=== PATIENT | female | born 1985 | race African-American/Black ===

== ENCOUNTER 2017-12-29 12:07 | Emergency (ER) | payer SELFPAY ==
[2017-12-29 15:48] LABS: ABS Basophils 0 10^3/ul (0-0.2); ABS Eosinophils 0.1 10^3/ul (0-0.6); ABS Lymphocytes 2.6 10^3/ul (1.0-4.8); ABS Monocytes 0.5 10^3/ul (0-0.8); ABS Neutrophils 1.9 10^3/ul (1.5-7.7); ABS Nucleated RBC 0 10^3/ul; Eosinophil % 2.3 % (0-6); Hematocrit 39 % (35-47); Hemoglobin 13.1 g/dl (12.0-16.0); Lymphocyte % 50.1 % (25-47); Mean Corpuscular HGB Conc 34 g/dl (31-36); Mean Corpuscular Hemoglobin 31 pg (27-31); Mean Corpuscular Volume 92 fL (80-97); Mean Platelet Volume 7.6 um3 (7.4-10.4); Nucleated Red Blood Cells % 0; Platelet Count 325 10^3/ul (150-450); Red Blood Count 4.22 10^6/ul (4.0-5.4); Red Cell Distribution Width 13 % (10.5-15); White Blood Count 5.1 10^3/ul (3.5-10.8)
[2017-12-29 16:00] LABS: EGFR Non-African American 89.6 (>60)
[2017-12-29] MEDS ORDERED: Iohexol 300* (CONTRAST) 10 ML SDV IV ONE (16:11)
[2017-12-29] MEDS ORDERED: Ondansetron INJ* 2 MG/ML VIAL IV ONE (17:36)
[2017-12-29] MEDS ORDERED: Morphine INJ* 4 MG/ML 1 ML SYRINGE (NEW SYRINGE VERSION) IV ONE (17:36)
[2017-12-29] MEDS ORDERED: Morphine VIAL* 4 MG/ML VIAL (1 ml vial) IV ONE ×2 (17:40→17:45)
--- NOTE | 2017-12-29 17:58 | ED ---
Complex/Multi-Sys Presentation - HPI Summary HPI Summary: Pt here w/ Rt sided ST x 4 days. This is now progressing into her ear. Dysphagia but is still eating and drinking w/o difficulty breathing or swallowing. Has had chills - no fever. Denies rhinorrhea, sneezing, coughing, PND, neck or throat injury. H/o mono as a teen - not sure if this feels the same. Rapid strep was negative. She also admits to a few "bad teeth" on this side of her mouth - didn't notice pain here first but is tender to touch around the area. No drainage into mouth. Tried some OTC "cold/flu" pain reliever w/o relief. Pain here is 5-6/10. She also c/o of RLQ pain that started yesterday and is worse today. Pain is 8/ 10. She had an episode of nausea w/ vomiting since. States it could be an ovarian cyst as she's had this in the past but also admits she still has her appendix. Denies diarrhea - has not moved her bowels in 2 days but this is normal for her. Denies flank pain, urinary sx, vaginal d/c or irritation. Periods have been normal and LMP was about 2 weeks ago. - History Of Current Complaint Chief Complaint: EDGeneral Time Seen by Provider: 12/29/17 13:19 Hx Obtained From: Patient - Allergies/Home Medications Allergies/Adverse Reactions: Allergies Allergy/AdvReac Type Severity Reaction Status Date / Time No Known Allergies Allergy Verified 03/19/16 21:39 Home Medications: Home Medications NK [No Home Medications Reported] 12/29/17 [History Confirmed 12/29/17] PMH/Surg Hx/FS Hx/Imm Hx Previously Healthy: Yes Endocrine/Hematology History: Reports: Hx Anemia - HISTORY Denies: Hx Diabetes Cardiovascular History: Denies: Hx Congestive Heart Failure, Hx Hypertension, Hx Pacemaker/ICD Respiratory History: Reports: Hx Chronic Bronchitis, Hx Sleep Apnea - undiagnosed, Other Respiratory Problems/Disorders - OCCASIONAL SOB WITH EXERTION Denies: Hx Asthma GI History: Denies: Hx Cirrhosis, Hx Crohn's Disease, Hx Diverticulosis, Hx Gall Bladder Disease, Hx Gastroesophageal Reflux Disease, Hx Gastrointestinal Bleed, Hx Hiatal Hernia, Hx Irritable Bowel, Hx Ulcer History: Reports: Other Problems/Disorders - G3 Denies: Hx Kidney Infection, Hx Kidney Stones, Hx Renal Disease Musculoskeletal History: Reports: Hx Back Problems, Hx Bursitis - LEFT SHOULDER Sensory History: Reports: Hx Contacts or Glasses - bifocal (doesnt wear) Denies: Hx Hearing Aid Opthamlomology History: Reports: Hx Contacts or Glasses - bifocal (doesnt wear) Neurological History: Reports: Hx Headaches, Hx Migraine, Other Neuro Impairments/Disorders - TORTICOLLIS Psychiatric History: Reports: Hx Anxiety, Hx Panic Disorder - Surgical History Surgery Procedure, Year, and Place: 3 C-SECTIONS ,BREAST REDUCTION, NECK SURGERY Hx Anesthesia Reactions: No Infectious Disease History: No Infectious Disease History: Denies: History Other Infectious Disease, Traveled Outside the [place] in Last 30 Days - Family History Known Family History: Positive: Unknown - Social History Lives: With Family Alcohol Use: Occasionally Hx Substance Use: No Substance Use Type: Reports: None Hx Tobacco Use: Yes Smoking Status (MU): Light Every Day Tobacco Smoker Type: Cigarettes Amount Used/How Often: 1/2 pack per week Have You Smoked in the Last Year: Yes Review of Systems Positive: Chills. Negative: Fever, Fatigue Eyes: Negative Positive: Dental Pain - minor, Sore Throat, Ear Ache. Negative: Nasal Discharge Cardiovascular: Negative Respiratory: Negative Positive: Abdominal Pain, Vomiting, Nausea. Negative: Diarrhea Positive: see HPI Musculoskeletal: Negative Skin: Negative Neurological: Negative Psychological: Other - concerned All Other Systems Reviewed And Are Negative: Yes Physical Exam Triage Information Reviewed: Yes Vital Signs On Initial Exam: Initial Vitals Temp Pulse Resp BP Pulse Ox 97.0 F 72 15 131/72 99 12/29/17 12:12 12/29/17 12:12 12/29/17 12:12 12/29/17 12:12 12/29/17 12:12 Vital Signs Reviewed: Yes Appearance: Positive: Well-Appearing, Pain Distress, Obese Skin: Positive: Warm, Skin Color Reflects Adequate Perfusion, Dry Head/Face: Positive: Normal Head/Face Inspection Eyes: Positive: Normal, EOMI, TRACIE, Conjunctiva Clear. Negative: Conjunctiva Inflammed, Discharge ENT: Positive: Normal ENT inspection, Hearing grossly normal, Pharynx normal, TMs normal, Uvula midline, Other - handling secretoins well. Negative: Pharyngeal erythema, Nasal congestion, Nasal drainage, Tonsillar swelling, Tonsillar exudate, Trismus, Muffled voice, Hoarse voice, Sinus tenderness Dental: Positive: Other - gingiva along molars of Rt mandible are w/ mild TTP - no erythema/edema/discharge of the surrounding area Neck: Positive: Supple, No Lymphadenopathy, Tenderness @ - Rt SCM, submandibular region TTP Respiratory/Lung Sounds: Positive: Clear to Auscultation, Breath Sounds Present. Negative: Rales, Rhonchi, Stridor, Tracheal Deviation, Wheezes, Unable to speak in full sentences, Fatigue Cardiovascular: Positive: Normal, RRR, S1, S2. Negative: Murmur, Rub Abdomen Description: Positive: Soft, [place] Point Tenderness - + rebounding ; + Rovsing. Negative: CVA Tenderness (R), CVA Tenderness (L), Distended, Guarding Bowel Sounds: Positive: Present Musculoskeletal: Positive: Normal, Strength/ROM Intact Neurological: Positive: Normal, Sensory/Motor Intact, Alert, Oriented to Person Place, Time, CN Intact II-III Psychiatric: Positive: Anxious - tearful but consolable Diagnostics - Vital Signs Vital Signs Temp Pulse Resp BP Pulse Ox 12/29/17 12:12 97.0 F 72 15 131/72 99 - Laboratory Lab Results: Lab Results 12/29/17 12/29/17 12/29/17 Range/Units 13:19 15:30 15:30 WBC (3.5-10.8) 10^3/ul RBC (4.0-5.4) 10^6/ul Hgb (12.0-16.0) g/dl Hct (35-47) % MCV (80-97) fL MCH (27-31) pg MCHC (31-36) g/dl RDW (10.5-15) % Plt Count (150-450) 10^3/ul MPV (7.4-10.4) um3 Neut % (Auto) (38-83) % Lymph % (Auto) (25-47) % [place] % (Auto) (0-7) % Eos % (Auto) (0-6) % Baso % (Auto) (0-2) % Absolute Neuts (auto) (1.5-7.7) 10^3/ul Absolute Lymphs (auto) (1.0-4.8) 10^3/ul Absolute Monos (auto) (0-0.8) 10^3/ul Absolute Eos (auto) (0-0.6) 10^3/ul Absolute Basos (auto) (0-0.2) 10^3/ul Absolute Nucleated RBC 10^3/ul Nucleated RBC % Sodium 139 (139-145) mmol/L Potassium TNP Chloride 106 (101-111) mmol/L Carbon Dioxide 25 (22-32) mmol/L Anion Gap 8 (2-11) mmol/L BUN 11 (6-24) mg/dL Creatinine 0.75 (0.51-0.95) mg/dL Est GFR ( Amer) 115.2 (>60) Est GFR (Non-Af Amer) 89.6 (>60) BUN/Creatinine Ratio 14.7 (8-20) Glucose 78 (70-100) mg/dL Lactic Acid (0.5-2.0) mmol/L Calcium 9.2 (8.6-10.3) mg/dL Magnesium 2.1 (1.9-2.7) mg/dL Total Bilirubin 0.40 (0.2-1.0) mg/dL AST TNP ALT 11 (7-52) U/L Alkaline Phosphatase 65 (34-104) U/L C-Reactive Protein 16.72 H (< 5.00) mg/L Total Protein 8.3 (6.4-8.9) g/dL Albumin 4.5 (3.2-5.2) g/dL Globulin 3.8 (2-4) g/dL Albumin/Globulin Ratio 1.2 (1-3) Lipase 46 (11.0-82.0) U/L Beta HCG, Quant < 0.60 mIU/mL Monoscreen Negative (Negative) Group A Strep Rapid Negative (Negative) 12/29/17 12/29/17 12/29/17 Range/Units 15:30 15:30 17:20 WBC 5.1 (3.5-10.8) 10^3/ul RBC 4.22 (4.0-5.4) 10^6/ul Hgb 13.1 (12.0-16.0) g/dl Hct 39 (35-47) % MCV 92 (80-97) fL MCH 31 (27-31) pg MCHC 34 (31-36) g/dl RDW 13 (10.5-15) % Plt Count 325 (150-450) 10^3/ul MPV 7.6 (7.4-10.4) um3 Neut % (Auto) 37.6 L (38-83) % Lymph % (Auto) 50.1 H (25-47) % [place] % (Auto) 9.2 H (0-7) % Eos % (Auto) 2.3 (0-6) % Baso % (Auto) 0.8 (0-2) % Absolute Neuts (auto) 1.9 (1.5-7.7) 10^3/ul Absolute Lymphs (auto) 2.6 (1.0-4.8) 10^3/ul Absolute Monos (auto) 0.5 (0-0.8) 10^3/ul Absolute Eos (auto) 0.1 (0-0.6) 10^3/ul Absolute Basos (auto) 0 (0-0.2) 10^3/ul Absolute Nucleated RBC 0 10^3/ul Nucleated RBC % 0 Sodium (139-145) mmol/L Potassium 3.6 Chloride (101-111) mmol/L Carbon Dioxide (22-32) mmol/L Anion Gap (2-11) mmol/L BUN (6-24) mg/dL Creatinine (0.51-0.95) mg/dL Est GFR ( Amer) (>60) Est GFR (Non-Af Amer) (>60) BUN/Creatinine Ratio (8-20) Glucose (70-100) mg/dL Lactic Acid 1.4 (0.5-2.0) mmol/L Calcium (8.6-10.3) mg/dL Magnesium (1.9-2.7) mg/dL Total Bilirubin (0.2-1.0) mg/dL AST 14 ALT (7-52) U/L Alkaline Phosphatase (34-104) U/L C-Reactive Protein (< 5.00) mg/L Total Protein (6.4-8.9) g/dL Albumin (3.2-5.2) g/dL Globulin (2-4) g/dL Albumin/Globulin Ratio (1-3) Lipase (11.0-82.0) U/L Beta HCG, Quant mIU/mL Monoscreen (Negative) Group A Strep Rapid (Negative) Result Diagrams: 04/14/18 15:30 12/29/17 17:20 Lab Statement: Any lab studies that have been ordered have been reviewed, and results considered in the medical decision making process. Complex Multi-Symp Course/Dx Course Of Treatment: Pt presents w/ 2 areas of pain: 1) Throat/neck - appears clear on PE - neg rapid strep, mono. Has amalgom in a couple of molars - possible deep tissue infection - will check with CT as pt is very tender to palpation. Results pending. 2) RLQ pain - diff dx: appendicitis, urinary stone , UTI, ovarian cyst/torsion, ICV congestion, mittleschmerz. Pending CT scan. Labs are unremarkable for infection however her CRP is slightly elevated. Vitals stable. Signed out to Sam Emmanuel PA-C in stable condition. - Diagnoses Provider Diagnoses: Sore throat, RLQ abdominal pain Discharge - Sign-Out/Discharge Documenting (check all that apply): Sign-Out Patient Signing out patient TO: Sam Emmanuel - Discharge Plan
--- NOTE | 2017-12-29 18:40 | RAD ---
CLINICAL HISTORY: Right lower quadrant pain COMPARISON: Similar examination dated June 29, 2014 TECHNIQUE: Contrast enhanced CT examination of the abdomen and pelvis from the lung bases through the initial tuberosities. The patient received 150 mL Omnipaque 300 intravenously prior to imaging.The patient received oral contrast as well prior to imaging. FINDINGS: VISUALIZED LUNG BASES: The visualized lung bases are grossly clear. There is no pleural effusion. ABDOMEN AND PELVIS: The liver, spleen, pancreas and adrenal glands are grossly normal in appearance. The gallbladder is normal. The kidneys are normal in appearance without focal mass, calcification or signs of hydronephrosis. Evaluation of the gastrointestinal tract is limited in the absence of oral contrast. The small and large bowel are not distended. The patient's normal appendix is identified in the right lower quadrant with gas in the lumen (coronal image 46). There is no gross retroperitoneal or mesenteric lymphadenopathy. The pelvic viscera is normal in appearance. The abdominal aorta and iliac arteries are normal in course and diameter. There are no sinister bone lesions. IMPRESSION: No CT apparent acute abnormality.
--- NOTE | 2017-12-29 18:43 | RAD ---
INDICATION: ] Right throat/neck/ear pain COMPARISON: None TECHNIQUE: A CT scan of the neck was performed with intravenous contrast following intravenous injection of 49 ml of Omnipaque 300 nonionic contrast. Contiguous axial sections were obtained from the skull base through the lung apices. Images were reconstructed in the coronal and sagittal planes. FINDINGS: The airway is patent. The epiglottis and aryepiglottic folds appear within normal limits. No retropharyngeal soft tissue swelling is noted. No significant enlarged nodes are seen. The parotid and submandibular glands appear to be within normal limits. The thyroid gland appears normal. The lung apices appear clear. The visualized portion of the paranasal sinuses and mastoid air cells appear clear. No significant focal osseous abnormality is seen. IMPRESSION: Normal soft tissue CT of the neck.
[2017-12-29 20:59] VITALS: BP 122/78
--- NOTE | 2017-12-30 02:14 | PN ---
Progress Note - Progress Note Date of Service: 12/29/17 Note: Patient received in signout from Ayde Stewart, PAC pending labs and CAT scan of the soft tissue of neck and abdomen. Blood work is unremarkable. CT scan of neck soft tissue and abdomen are negative for acute findings, reading per radiology. I initially went to discuss results with patient and she was talking on her cell phone and asked me to come back at a later time as she could not be bothered to hang up her phone. I later returned and discussed labs and CT scans with patient. Etiology of patient's pain is unclear at this time but workup is unremarkable and there are no signs of bacterial infection at this time. Suspect viral etiology. Advised patient to take Tylenol or Motrin for pain. To call her family doctor Sunday for a close follow-up appointment. Return to the ear symptoms change or worsen. He should understands and agrees with this plan.
== END 2017-12-29 20:55 | disposition home or self-care (01) ==
LOC: ED 12:07
DX: J02.9 Acute pharyngitis, unspecified (principal); R10.31 Right lower quadrant pain; R11.2 Nausea with vomiting, unspecified; R68.83 Chills (without fever); K08.89 Other specified disorders of teeth and supporting structures; F41.0 Panic disorder [episodic paroxysmal anxiety]; Z32.02 Encounter for pregnancy test, result negative; F17.210 Nicotine dependence, cigarettes, uncomplicated
CPT/HCPCS: 36415; 70491; 74177; 80053; 83605; 83690; 83735; 84702; 85025; 86140; 86308; 87651; 96374; 96375; 99283; J2270; J2405; Q9967

== ENCOUNTER 2018-02-24 18:37 | Emergency (ER) | payer SELFPAY ==
[2018-02-24 18:48] VITALS: BP 126/71
--- NOTE | 2018-02-24 19:26 | RAD ---
INDICATION: Pain across the dorsal ankle after a rolling injury COMPARISON: None. TECHNIQUE: 2 views of the right ankle were obtained. FINDINGS: The bones are normal alignment. Joint spaces appear maintained. No fracture is seen. IMPRESSION: Normal ankle radiograph. If the patient's symptoms persist, follow-up imaging is recommended.
[2018-02-24] MEDS ORDERED: Ketorolac INJ* 30 MG/ML 1 ML VIAL IM ONE (19:42)
--- NOTE | 2018-02-24 19:48 | ED ---
Lower Extremity - HPI Summary HPI Summary: 32-year-old female presents with right ankle injury today. She she was at work and stepped off a stair wrong. She twisted her ankle. She denies any knee pain. She is hurts worse when she tries to ambulate. She denies any previous injury to the ankle. She hasn't taking anything for pain. States pain at 10 out of 10. No deformity noted. No other injury. No numbness or tingling. - History of Current Complaint Chief Complaint: EDExtremityLower Stated Complaint: RT ANKLE INJURY Time Seen by Provider: 02/24/18 18:56 Hx Last Menstrual Period: a month or so? she can't recall Pain Intensity: 8 - Allergies/Home Medications Allergies/Adverse Reactions: Allergies Allergy/AdvReac Type Severity Reaction Status Date / Time No Known Allergies Allergy Verified 02/24/18 18:47 PMH/Surg Hx/FS Hx/Imm Hx Endocrine/Hematology History: Reports: Hx Anemia - HISTORY Denies: Hx Diabetes Cardiovascular History: Denies: Hx Congestive Heart Failure, Hx Hypertension, Hx Pacemaker/ICD Respiratory History: Reports: Hx Chronic Bronchitis, Hx Sleep Apnea - undiagnosed, Other Respiratory Problems/Disorders - OCCASIONAL SOB WITH EXERTION Denies: Hx Asthma GI History: Denies: Hx Cirrhosis, Hx Crohn's Disease, Hx Diverticulosis, Hx Gall Bladder Disease, Hx Gastroesophageal Reflux Disease, Hx Gastrointestinal Bleed, Hx Hiatal Hernia, Hx Irritable Bowel, Hx Ulcer History: Reports: Other Problems/Disorders - G3 Denies: Hx Kidney Infection, Hx Kidney Stones, Hx Renal Disease Musculoskeletal History: Reports: Hx Back Problems, Hx Bursitis - LEFT SHOULDER Sensory History: Reports: Hx Contacts or Glasses - bifocal (doesnt wear) Denies: Hx Hearing Aid Opthamlomology History: Reports: Hx Contacts or Glasses - bifocal (doesnt wear) Neurological History: Reports: Hx Headaches, Hx Migraine, Other Neuro Impairments/Disorders - TORTICOLLIS Psychiatric History: Reports: Hx Anxiety, Hx Panic Disorder - Surgical History Surgery Procedure, Year, and Place: 3 C-SECTIONS ,BREAST REDUCTION, NECK SURGERY Hx Anesthesia Reactions: No Infectious Disease History: No Infectious Disease History: Denies: History Other Infectious Disease, Traveled Outside the [place] in Last 30 Days - Family History Known Family History: Positive: Unknown - Social History Alcohol Use: Occasionally Hx Substance Use: No Substance Use Type: Reports: None Hx Tobacco Use: Yes Smoking Status (MU): Light Every Day Tobacco Smoker Type: Cigarettes Amount Used/How Often: 1/2 pack per week Have You Smoked in the Last Year: Yes Review of Systems Negative: Fever Negative: Chest Pain Negative: Shortness Of Breath Positive: Myalgia - right ankle pain All Other Systems Reviewed And Are Negative: Yes Physical Exam Triage Information Reviewed: Yes Vital Signs On Initial Exam: Initial Vitals Temp Pulse Resp BP Pulse Ox 97.6 F 73 17 126/71 100 02/24/18 18:44 02/24/18 18:44 02/24/18 18:44 02/24/18 18:44 02/24/18 18:44 Vital Signs Reviewed: Yes Appearance: Positive: Well-Appearing Skin: Positive: Warm, Dry Head/Face: Positive: Normal Head/Face Inspection Eyes: Positive: Normal, Conjunctiva Clear ENT: Positive: Pharynx normal Respiratory/Lung Sounds: Positive: Clear to Auscultation, Breath Sounds Present Cardiovascular: Positive: Normal, RRR Musculoskeletal: Positive: Limited @ - right ankle, Other - Tenderness over the anterior aspect of his ankle, minimal edema, good pulses, cap refill less than 2 seconds, sensation grossly intact Neurological: Positive: Normal Psychiatric: Positive: Normal Diagnostics - Vital Signs Vital Signs Temp Pulse Resp BP Pulse Ox 02/24/18 18:44 97.6 F 73 17 126/71 100 - Laboratory Lab Statement: Any lab studies that have been ordered have been reviewed, and results considered in the medical decision making process. - Radiology ankle Xray Interpretation: No Acute Changes Radiology Interpretation Completed By: Radiologist Lower Extremity Course/Dx - Course Course Of Treatment: 32-year-old female presents with right ankle injury today. She she was at work and stepped off a stair wrong. She twisted her ankle. She denies any knee pain. She is hurts worse when she tries to ambulate. She denies any previous injury to the ankle. She hasn't taking anything for pain. States pain at 10 out of 10. No deformity noted. No other injury. No numbness or tingling. On exam has tenderness over anterior ankle. Neurovascular intact. X-rays normal. We'll treat his sprain with rice. Patient understands agrees with plan. - Diagnoses Differential Diagnosis/HQI/PQRI: Positive: Fracture (Closed), Sprain, Strain Provider Diagnoses: Right ankle injury Discharge - Sign-Out/Discharge Documenting (check all that apply): Discharge/Admit/Transfer - Discharge Plan Condition: Good Disposition: HOME Patient Education Materials: Ankle Sprain (ED) Referrals: [facility] [Outside] Additional Instructions: Stay off ankle as much as possible Ice, elevate Ibuprofen every 6 hours for pain Follow up with primary if no improvement Return to ED if develop or any new or worsening symptoms - Billing Disposition and Condition Condition: GOOD Disposition: Home
== END 2018-02-24 20:28 | disposition home or self-care (01) ==
LOC: ED 18:37
DX: S99.911A Unspecified injury of right ankle, initial encounter (principal); X50.0XXA Overexertion from strenuous movement or load, initial encounter; Y92.9 Unspecified place or not applicable; F17.210 Nicotine dependence, cigarettes, uncomplicated
CPT/HCPCS: 96372; 99282; J1885

== ENCOUNTER 2019-02-12 01:08 | Emergency (ER) | payer SELFPAY ==
--- NOTE | 2019-02-12 02:12 | ED ---
Complex/Multi-Sys Presentation - HPI Summary HPI Summary: This patient is a 33 year old female presenting to [facility] ED with multi systems present since 2 days ago. Pt reports headache, nausea, vomiting, lower abdominal cramping, and lower back pain. Pt denies fever and dysuria. She rates her pain 8/10 in severity. She does not know when her LNMP was. She has had 3 previous pregnancies. - History Of Current Complaint Chief Complaint: EDAbdPain Hx Obtained From: Patient Onset/Duration: Lasting Days Timing: Constant - Allergies/Home Medications Allergies/Adverse Reactions: Allergies Allergy/AdvReac Type Severity Reaction Status Date / Time No Known Allergies Allergy Verified 02/12/19 01:19 PMH/Surg Hx/FS Hx/Imm Hx Endocrine/Hematology History: Reports: Hx Anemia - HISTORY Denies: Hx Diabetes Cardiovascular History: Denies: Hx Congestive Heart Failure, Hx Hypertension, Hx Pacemaker/ICD Respiratory History: Reports: Hx Chronic Bronchitis, Hx Sleep Apnea - undiagnosed, Other Respiratory Problems/Disorders - OCCASIONAL SOB WITH EXERTION Denies: Hx Asthma GI History: Denies: Hx Cirrhosis, Hx Crohn's Disease, Hx Diverticulosis, Hx Gall Bladder Disease, Hx Gastroesophageal Reflux Disease, Hx Gastrointestinal Bleed, Hx Hiatal Hernia, Hx Irritable Bowel, Hx Ulcer History: Reports: Other Problems/Disorders - G3 Denies: Hx Kidney Infection, Hx Kidney Stones, Hx Renal Disease Musculoskeletal History: Reports: Hx Back Problems, Hx Bursitis - LEFT SHOULDER Sensory History: Reports: Hx Contacts or Glasses - bifocal (doesnt wear) Denies: Hx Hearing Aid Opthamlomology History: Reports: Hx Contacts or Glasses - bifocal (doesnt wear) Neurological History: Reports: Hx Headaches, Hx Migraine, Other Neuro Impairments/Disorders - TORTICOLLIS Psychiatric History: Reports: Hx Anxiety, Hx Panic Disorder - Surgical History Surgery Procedure, Year, and Place: 3 C-SECTIONS ,BREAST REDUCTION, NECK SURGERY Hx Anesthesia Reactions: No Infectious Disease History: No Infectious Disease History: Denies: History Other Infectious Disease, Traveled Outside the [place] in Last 30 Days - Family History Known Family History: Positive: Unknown - Patient adopted - Social History Alcohol Use: Occasionally Hx Substance Use: No Substance Use Type: Reports: None Hx Tobacco Use: Yes Smoking Status (MU): Light Every Day Tobacco Smoker Type: Cigarettes Amount Used/How Often: 1/2 pack per week Have You Smoked in the Last Year: Yes Review of Systems Negative: Fever Positive: Abdominal Pain, Vomiting, Nausea Negative: dysuria Positive: Other - Back pain Positive: Headache All Other Systems Reviewed And Are Negative: Yes Physical Exam - Summary Physical Exam Summary: Appearance: Well-appearing, Well-nourished, lying in bed comfortably Skin: Warm, dry, no obvious rash Eyes: sclera anicteric, no conjunctival pallor ENT: mucous membranes moist, pharynx appears normal Neck: Supple, nontender Respiratory: Clear to auscultation, no signs of respiratory distress Cardiovascular: Normal S1, S2. No murmurs. Normal distal pulses in tibial and radial bilaterally. Abdomen: Soft, nontender, normal active bowel sounds present Musculoskeletal: Normal, Strength/ROM Intact Neurological: A&Ox3, awake and alert, mentation is normal, speech is fluent and appropriate Psychiatric: affect is normal, does not appear anxious or depressed Triage Information Reviewed: Yes Vital Signs On Initial Exam: Initial Vitals Temp Pulse Resp BP Pulse Ox 98.1 F 78 16 132/80 97 02/12/19 01:10 02/12/19 01:10 02/12/19 01:10 02/12/19 01:10 02/12/19 01:10 Vital Signs Reviewed: Yes Diagnostics - Vital Signs Vital Signs Temp Pulse Resp BP Pulse Ox 02/12/19 01:10 98.1 F 78 16 132/80 97 - Laboratory Result Diagrams: 02/12/19 02:29 02/12/19 02:29 Lab Statement: Any lab studies that have been ordered have been reviewed, and results considered in the medical decision making process. - CT Abd/pelvis CT Interpretation Completed By: Radiologist Summary of CT Findings: No acute intra-abdominal pathology visualized. ED Provider has reviewed this report. Complex Multi-Symp Course/Dx Course Of Treatment: This patient is a 33 year old female presenting to [facility] ED with multi systems present since 2 days ago. Pt reports headache, nausea, vomiting, lower abdominal cramping, and lower back pain. Labs and CT Abd/Pel were unremarkable. A plan for discharge was discussed with the patient and she was agreeable with this plan. - Diagnoses Provider Diagnoses: Nausea & vomiting, Abdominal pain Discharge - Sign-Out/Discharge Documenting (check all that apply): Patient Departure - Discharge Signing out patient TO: Kandice Dee - At shift change 0700 Patient Received Moderate/Deep Sedation with Procedure: No - Discharge Plan Condition: Good Disposition: HOME Prescriptions: Famotidine TAB* [Pepcid 20 MG TAB*] 20 mg PO BID #30 tab Ondansetron ODT TAB* [Zofran 4 MG Odt TAB*] 8 mg PO Q6H PRN #15 tab.odt PRN Reason: Nausea Patient Education Materials: Acute Nausea and Vomiting (ED), Abdominal Pain (ED ) Referrals: [facility] [Outside] - 1 Week (if not improving) Additional Instructions: Your CT scan and lab work did not show any significant abnormality that would explain your symptoms. For now we will focus on treating your symptoms with zofran for nausea and pepcid for the abdominal discomfort. If the symptoms persist you will need to be seen in followup. - Billing Disposition and Condition Condition: GOOD Disposition: Home - Attestation Statements Document Initiated by Arline: Yes Documenting Scribe: Justice Matos Provider For Whom Arline is Documenting (Include Credential): Yoel Zacarias MD Scribe Attestation: Justice Golden, scribed for Yoel Zacarias MD on 02/13/19 at 0237. Scribe Documentation Reviewed: Yes Provider Attestation: The documentation as recorded by the Justice lopez accurately reflects the service I personally performed and the decisions made by Yoel berry MD Status of Scribe Document: Viewed
[2019-02-12] MEDS ORDERED: Ondansetron ODT TAB* 4 MG SL ONE (02:15)
[2019-02-12 02:42] LABS: ABS Basophils 0.1 10^3/ul (0-0.2); ABS Eosinophils 0.4 10^3/ul (0-0.6); ABS Lymphocytes 2.4 10^3/ul (1.0-4.8); ABS Monocytes 0.5 10^3/ul (0-0.8); ABS Neutrophils 2.8 10^3/ul (1.5-7.7); Eosinophil % 5.8 %; Hematocrit 36 % (35-47); Hemoglobin 12.3 g/dL (12.0-16.0); Lymphocyte % 38.5 %; Mean Corpuscular HGB Conc 34 g/dL (31-36); Mean Corpuscular Hemoglobin 31 pg (27-31); Mean Corpuscular Volume 91 fL (80-97); Mean Platelet Volume 7.9 fL (7.4-10.4); Nucleated Red Blood Cells % 0.2; Platelet Count 300 10^3/uL (150-450); Red Blood Count 3.98 10^6 /uL (3.70-4.87); Red Cell Distribution Width 13 % (10.5-15); White Blood Count 6.2 10^3/uL (3.5-10.8)
[2019-02-12 03:06] LABS: ALT 14 U/L (7-52); AST 21 U/L (13-39); Albumin/Globulin Ratio 1.3 (1-3); Alkaline Phosphatase 61 U/L (34-104); Anion Gap 6 mmol/L (2-11); BUN/Creatinine Ratio 15.5 (8-20); Blood Urea Nitrogen 11 mg/dL (6-24); CO2 Carbon Dioxide 26 mmol/L (22-32); Chloride 105 mmol/L (101-111); EGFR African American 114.7 (>60); EGFR Non-African American 94.8 (>60); Globulin 3.1 g/dL (2-4); Glucose 91 mg/dL (70-100); Potassium 3.7 mmol/L (3.5-5.0); Sodium 137 mmol/L (135-145); Total Protein 7.1 g/dL (6.4-8.9)
[2019-02-12 03:12] LABS: HCG Pregnancy < 0.60 mIU/mL
[2019-02-12] MEDS ORDERED: Iohexol 300* (CONTRAST) 10 ML SDV IV ONE (05:52)
[2019-02-12] MEDS ORDERED: Acetaminophen TAB* 325 MG PO ONE (05:58)
[2019-02-12 06:10] LABS: Urine Appearance Cloudy; Urine Bilirubin Negative (Negative); Urine Blood Negative (Negative); Urine Color Yellow; Urine Glucose Negative (Negative); Urine Ketones 2+ (Negative); Urine Nitrite Negative (Negative); Urine Protein Negative (Negative); Urine Specific Gravity 1.038 (1.010-1.030); Urine Urobilinogen Positive (Negative)
[2019-02-12 07:07] VITALS: BP 119/71
== END 2019-02-12 07:05 | disposition home or self-care (01) ==
LOC: ED 01:08
DX: R10.9 Unspecified abdominal pain (principal); R11.2 Nausea with vomiting, unspecified; F17.210 Nicotine dependence, cigarettes, uncomplicated; R51 Headache
CPT/HCPCS: 36415; 74177; 80053; 81003; 84702; 85025; 99282; A9270-GY; Q9967

== ENCOUNTER 2019-06-13 14:59 | Emergency (ER) | payer SELFPAY ==
[2019-06-13 15:18] VITALS: BP 120/70
--- NOTE | 2019-06-13 15:37 | UC ---
Complaint Female HPI - HPI Summary HPI Summary: 34 yo female presents with multiple complaints. 1) Over the last 4 days she has had increasing pain and swelling to a tooth at the right bottom of her mouth. She thinks this is an abscess as she has had these in the past. She does not have a dentist. 2) She is eating and drinking well, but she thinks the dental infection is making her nauseous and has vomited once. Currently is drinking a large soft drink from [employer] 3) For the past 2 weeks has had intermittent urinary frequency. Denies fevers, chills, sore throat, SOB, chest pain, abdominal pain, diarrhea, burning with urination, flank pain, vaginal bleeding or discharge. - History Of Current Complaint Chief Complaint: UCGeneralIllness Stated Complaint: tooth ACHE, VOMITING AND FREQUENT URINATION Time Seen by Provider: 06/13/19 15:36 Hx Obtained From: Patient Hx Last Menstrual Period: 05/09/19 Onset/Duration: Gradual Onset Severity Initially: Moderate Severity Currently: Moderate Pain Intensity: 7 Pain Scale Used: 0-10 Numeric - Allergies/Home Medications Allergies/Adverse Reactions: Allergies Allergy/AdvReac Type Severity Reaction Status Date / Time No Known Allergies Allergy Verified 06/13/19 15:18 PMH/Surg Hx/FS Hx/Imm Hx - Additional Past Medical History Additional PMH: None - Surgical History Surgical History: Yes Surgery Procedure, Year, and Place: 3 C-SECTIONS ,BREAST REDUCTION, NECK SURGERY - Family History Known Family History: Positive: Unknown - Patient adopted - Social History Lives: With Family Alcohol Use: Rare Substance Use Type: None Smoking Status (MU): Light Every Day Tobacco Smoker Type: Cigarettes Amount Used/How Often: 1/2 pack per week Have You Smoked in the Last Year: Yes Household Exposure Type: Cigarettes - Immunization History Most Recent Influenza Vaccination: 06/2014 Most Recent Tetanus Shot: last 10 years Most Recent Pneumonia Vaccination: none Review of Systems All Other Systems Reviewed And Are Negative: No Constitutional: Positive: Negative Skin: Positive: Negative Eyes: Positive: Negative ENT: Positive: Dental Pain Respiratory: Positive: Negative Cardiovascular: Positive: Negative Gastrointestinal: Positive: Nausea Genitourinary: Positive: Frequency Motor: Positive: Negative Neurovascular: Positive: Negative Neurological: Positive: Negative Psychological: Positive: Negative Physical Exam - Summary Physical Exam Summary: GENERAL: NAD. WDWN. No pain distress. SKIN: No rashes, sores, lesions, or open wounds. HEENT: Head: AT/NC Eyes: EOM intact. Conjunctiva clear without inflammation or discharge. Ears: Hearing grossly normal. TMs intact, no bulging, erythema, or edema. Nose: Nasal mucosa pink and moist. NTTP maxillary and frontal sinus. Throat: Posterior oropharynx without exudates, erythema, or tonsillar enlargement. Uvula midline. NECK: Supple. Nontender. No lymphadenopathy. CHEST: CTAB. No r/r/w. No accessory muscle use. Breathing comfortably and in no distress. CV: RRR. Without m/r/g. Pulses intact. Cap refill <2seconds ABDOMEN: Soft. NTTP. No distention or guarding. No CVA tenderness. Bowel sounds present NEURO: Alert. PSYCH: Age appropriate behavior. Triage Information Reviewed: Yes Vital Signs: Initial Vital Signs Temp 97.7 F 06/13/19 15:14 Pulse 75 06/13/19 15:14 Resp 18 06/13/19 15:14 BP 120/70 06/13/19 15:14 Pulse Ox 99 06/13/19 15:14 Laboratory Tests 06/13/19 06/13/19 15:27 15:29 POC Urine Color Meliza POC Urine Clarity Slightly cloudy POC Urine pH 5.5 POC Ur Specif [place] >= 1.030 POC Urine Protein Negative POC Ur Glucose (UA) Negative POC Urine Ketones 1+ A POC Urine Blood Trace-intact A POC Urine Nitrite Negative POC Urine Bilirubin 1+ A POC Urine Urobilinogen 1.0 POC U Leukocyte Esteras Negative POC Ur Test Negative Vital Signs Reviewed: Yes Dental: Positive: Percussion Tenderness @ - Tooth #30, Abscess @ - Tooth #30. Negative: Dental Fracture @, Cellulitis @, Cervical Lymphadenopathy, Bleeding Complaint Female Dx - Course Course Of Treatment: Tooth #30 abscess. Will treat with amoxicillin and zofran for her nausea. Regarding her urinary frequency - her UA is negative today. Encouraged her to f/ u with her PCP or Urology for further evaluation. - Differential Dx/Diagnosis Provider Diagnosis: Dental abscess, Urinary frequency, Nausea Discharge ED - Sign-Out/Discharge Documenting (check all that apply): Patient Departure All imaging exams completed and their final reports reviewed: No Studies - Discharge Plan Condition: Stable Disposition: HOME Prescriptions: Amoxicillin PO (*) [Amoxicillin 500 MG CAP*] 500 mg PO Q12H #14 cap Ondansetron ODT TAB* [Zofran 4 MG Odt TAB*] 4 mg PO Q8H PRN #12 tab.odt PRN Reason: Nausea Patient Education Materials: Dental Abscess (ED) Referrals: No Primary Care Phys,NOPCP [Primary Care Provider] - Tomas Carranza MD [Medical Doctor] - If Needed Additional Instructions: If you develop a fever, shortness of breath, chest pain, new or worsening symptoms - please call your PCP or go to the ED immediately. - Billing Disposition and Condition Condition: STABLE Disposition: Home
== END 2019-06-13 15:49 | disposition home or self-care (01) ==
LOC: UCEAST 14:59
DX: K04.7 Periapical abscess without sinus (principal); R35.0 Frequency of micturition; R11.0 Nausea; Z32.02 Encounter for pregnancy test, result negative; F17.210 Nicotine dependence, cigarettes, uncomplicated
CPT/HCPCS: 81003; 84702; 99212; G0463

== ENCOUNTER 2019-09-24 07:19 | Emergency (ER) | payer OTHER ==
[2019-09-24] MEDS ORDERED: Ondansetron INJ* 2 MG/ML VIAL IV ONE (07:49)
[2019-09-24] MEDS ORDERED: NS 0.9% 1000 ML** 1,000 ML IV ONE (07:49)
[2019-09-24 07:51] LABS: Influenza B Molecular POSITIVE (Negative)
--- NOTE | 2019-09-24 07:59 | ED ---
Influenza-Like Illness - HPI Summary HPI Summary: Patient is a 34 y/o F presenting to [facility] for a chief complaint of influenza- like symptoms since 09/20/19. Patient states her symptoms initially began with a cough. Patient currently complains of fever, chills, generalized body aches, headache, nausea, and vomiting. She received an influenza vaccination this season. Any significant PMHx is denied. PSHx is significant for and spinal surgery. FMHx is significant for diabetes mellitus. Patient admits occasional alcohol and tobacco use, but denies drug use. LNMP was one month ago. - History of Current Complaint Chief Complaint: EDFluSymptoms Time Seen by Provider: 09/24/19 07:42 Hx Obtained From: Patient Onset/Duration: Sudden Onset, Lasting Days, Still Present Severity: Moderate Associated Signs & Symptoms: Fever - In vitals, 99.6 F, Myalgia - Generalized body aches, Cough, Headache, Vomiting Related Hx: Smoking - Allergy/Home Medications Allergies/Adverse Reactions: Allergies Allergy/AdvReac Type Severity Reaction Status Date / Time No Known Allergies Allergy Verified 09/24/19 07:28 Home Medications: Home Medications FLUoxetine CAP* [PROzac CAP*] 10 mg PO DAILY 09/24/19 [History Confirmed ] PMH/Surg Hx/FS Hx/Imm Hx Previously Healthy: Yes Endocrine/Hematology History: Reports: Hx Anemia - HISTORY Denies: Hx Diabetes, Hx Thyroid Disease Cardiovascular History: Denies: Hx Congestive Heart Failure, Hx Hypercholesterolemia, Hx Hypertension , Hx Pacemaker/ICD Respiratory History: Reports: Hx Chronic Bronchitis, Hx Sleep Apnea - undiagnosed, Other Respiratory Problems/Disorders - OCCASIONAL SOB WITH EXERTION Denies: Hx Asthma, Hx Chronic Obstructive Pulmonary Disease (COPD) GI History: Denies: Hx Cirrhosis, Hx Crohn's Disease, Hx Diverticulosis, Hx Gall Bladder Disease, Hx Gastroesophageal Reflux Disease, Hx Gastrointestinal Bleed, Hx Hiatal Hernia, Hx Irritable Bowel, Hx Ulcer History: Reports: Other Problems/Disorders - G3 Denies: Hx Kidney Infection, Hx Kidney Stones, Hx Renal Disease Musculoskeletal History: Reports: Hx Back Problems, Hx Bursitis - LEFT SHOULDER Sensory History: Reports: Hx Contacts or Glasses - bifocal (doesnt wear) Denies: Hx Legally Blind, Hx Deafness, Hx Hearing Aid Opthamlomology History: Reports: Hx Contacts or Glasses - bifocal (doesnt wear) Denies: Hx Legally Blind EENT History: Denies: Hx Deafness Neurological History: Reports: Hx Headaches, Hx Migraine, Other Neuro Impairments/Disorders - TORTICOLLIS Psychiatric History: Reports: Hx Anxiety, Hx Panic Disorder - Surgical History Surgical History: Yes Surgery Procedure, Year, and Place: 3 C-SECTIONS ,BREAST REDUCTION, NECK SURGERY Hx Anesthesia Reactions: No Infectious Disease History: No Infectious Disease History: Denies: Hx Hepatitis, Hx Human Immunodeficiency Virus (HIV), History Other Infectious Disease, Traveled Outside the [place] in Last 30 Days - Family History Known Family History: Positive: Diabetes - Social History Occupation: Employed Full-time Lives: With Family Alcohol Use: Rare Hx Substance Use: No Substance Use Type: Reports: None Hx Tobacco Use: Yes Smoking Status (MU): Light Every Day Tobacco Smoker Type: Cigarettes Amount Used/How Often: 1/2 pack per week Have You Smoked in the Last Year: Yes Review of Systems Positive: Fever - In vitals, 99.6 F, Chills Positive: Cough Positive: Vomiting, Nausea Positive: Myalgia - Generalized body aches Positive: Headache All Other Systems Reviewed And Are Negative: Yes Physical Exam - Summary Physical Exam Summary: VITAL SIGNS: Reviewed. GENERAL: Patient is a well-developed and nourished FEMALE who is lying comfortable in the stretcher. Patient is not in any acute respiratory distress. HEAD AND FACE: No signs of trauma. No ecchymosis, hematomas or skull depressions. No sinus tenderness.. EYES: PERRLA, EOMI x 2, No injected conjunctiva, no nystagmus. EARS: Hearing grossly intact. Ear canals and tympanic membranes are within normal limits. MOUTH: Oropharynx within normal limits. NECK: Supple, trachea is midline, no adenopathy, no JVD, no carotid bruit, no c- spine tenderness, neck with full ROM. CHEST: Symmetric, no tenderness at palpation. LUNGS: Clear to auscultation bilaterally. No wheezing or crackles. CVS: Regular rate and rhythm, S1 and S2 present, no murmurs or gallops appreciated. ABDOMEN: Soft, non-tender. No signs of distention. No rebound, no guarding, and no masses palpated. Bowel sounds are normal. EXTREMITIES: FROM in all major joints, no edema, no cyanosis or clubbing. NEURO: Alert and oriented x 3. No acute neurological deficits. Speech is normal and follows commands. SKIN: Dry and warm. Triage Information Reviewed: Yes Vital Signs On Initial Exam: Initial Vitals Temp Pulse Resp BP Pulse Ox 99.6 F 107 20 134/93 100 09/24/19 07:21 09/24/19 07:21 09/24/19 07:21 09/24/19 07:21 09/24/19 07:21 Vital Signs Reviewed: Yes Procedures - Sedation Patient Received Moderate/Deep Sedation with Procedure: No Diagnostics - Vital Signs Vital Signs Temp Pulse Resp BP Pulse Ox 09/24/19 07:21 99.6 F 107 20 134/93 100 - Laboratory Lab Results: Lab Results 09/24/19 Range/Units 07:25 Influenza A (Rapid) Not Reportable Influenza B (Rapid) Positive A (Negative) Result Diagrams: 09/24/19 08:16 09/24/19 08:16 Lab Statement: Any lab studies that have been ordered have been reviewed, and results considered in the medical decision making process. - Radiology Chest X-ray Radiology Interpretation Completed By: Radiologist Summary of Radiographic Findings: Chest X-ray IMPRESSION: #. No evidence for pneumonia. No evidence for acute intrathoracic disease. Reviewed by Dr. Freeman. Flu Symptom Course/Dx - Course Assessment/Plan: Patient is a 34 y/o F presenting to [facility] for a chief complaint of influenza-like symptoms since 09/20/19. Patient states her symptoms initially began with a cough. Patient currently complains of fever, chills, generalized body aches, headache, nausea, and vomiting. She received an influenza vaccination this season. Any significant PMHx is denied. PSHx is significant for and spinal surgery. FMHx is significant for diabetes mellitus. Patient admits occasional alcohol and tobacco use, but denies drug use. LNMP was one month ago. Blood work is without any significant abnormality except for the WBCs 3.4 and CRP of 13.57. Influenza A is negative, influenza B is positive. In the ED course, the patient was given IV fluids, Zofran for nausea and vomiting, and Toradol for body aches. She was also given Tylenol. Chest x-ray impression: No evidence for pneumonia. No evidence for acute intrathoracic disease. Rapid strep is negative. After the patient received the medications, the patients symptoms have improved. Therefore, I discuss my findings and test results with the patient and she will be discharged home to follow-up with her PCP. Patient is hemodynamically stable, alert and oriented 3. I discussed all the findings and test results with the patient. Patient was instructed to return to the emergency room immediately if any of the symptoms return or worsen. Plan of care was discussed with the patient who understands and agrees. All questions were answered at patient's satisfaction. There were no further complaints or concerns. Lung exam before discharge: CTA B/L. Good air exchange. No wheezing or crackles heard. CVS: S1 and S2 present. No murmurs appreciated. Patient is alert and oriented x 3. Patient is hemodynamically stable. Patient will be discharged home to follow up with her PCP in the next 2- 3 days. - Diagnoses Differential Diagnosis/HQI/PQRI: Positive: Bronchitis, Influenza, Pneumonia, Upper Respiratory Infection Provider Diagnoses: Influenza Discharge ED - Sign-Out/Discharge Documenting (check all that apply): Patient Departure - Discharge - Discharge Plan Condition: Stable Disposition: HOME Patient Education Materials: Influenza (ED) Forms: *Work Release Referrals: [facility] [Outside] Additional Instructions: FOLLOW UP WITH YOUR PRIMARY CARE PROVIDER WITHIN 3 DAYS. RETURN TO THE EMERGENCY DEPARTMENT FOR ANY WORSENING OR NEW SYMPTOMS. - Billing Disposition and Condition Condition: STABLE Disposition: Home - Attestation Statements Document Initiated by Arline: Yes Documenting Scribe: Lillie Arzate Provider For Whom Arline is Documenting (Include Credential): Marceilno Freeman MD Scribe Attestation: I, Lillie Arzate, scribed for Marcelino Freeman MD on 09/24/19 at 1833. Scribe Documentation Reviewed: Yes Provider Attestation: The documentation as recorded by the Lillie lopez accurately reflects the service I personally performed and the decisions made by me, Marcelino Freeman MD Status of Scribe Document: Viewed
[2019-09-24] MEDS ORDERED: Ketorolac INJ* 30 MG/ML 1 ML VIAL IV PUSH ONE (08:13)
[2019-09-24 08:39] LABS: ABS Eosinophils 0.1 10^3/ul (0-0.6); ABS Lymphocytes 0.6 10^3/ul (1.0-4.8); ABS Monocytes 0.5 10^3/ul (0-0.8); ABS Neutrophils 2.2 10^3/ul (1.5-7.7); Eosinophil % 2.5 %; Hematocrit 37 % (35-47); Hemoglobin 12.8 g/dL (12.0-16.0); Lymphocyte % 16.5 %; Mean Corpuscular HGB Conc 35 g/dL (31-36); Mean Corpuscular Hemoglobin 32 pg (27-31); Mean Corpuscular Volume 93 fL (80-97); Mean Platelet Volume 7.3 fL (7.4-10.4); Platelet Count 310 10^3/uL (150-450); Red Blood Count 3.96 10^6 /uL (3.70-4.87); Red Cell Distribution Width 13 % (10-15); White Blood Count 3.4 10^3/uL (3.5-10.8)
[2019-09-24 08:52] LABS: Albumin 3.8 g/dL (3.2-5.2); Albumin/Globulin Ratio 1.2 (1-3); BUN/Creatinine Ratio 11.9 (8-20); C Reactive Protein 13.57 mg/L (<8.01); Calcium 8.6 mg/dL (8.6-10.3); EGFR African American 121.9 (>60); EGFR Non-African American 100.8 (>60); Globulin 3.3 g/dL (2-4); Potassium 3.8 mmol/L (3.5-5.0); Total Bilirubin 0.3 mg/dL (0.2-1.0); Total Protein 7.1 g/dL (6.4-8.9)
[2019-09-24] MEDS ORDERED: Acetaminophen TAB* 325 MG PO ONE (09:11)
[2019-09-24 09:24] LABS: Rapid Strep Molecular Negative (Negative)
[2019-09-24 12:04] VITALS: BP 99/66
== END 2019-09-24 11:40 | disposition home or self-care (01) ==
LOC: ED 07:19
DX: J11.1 Influenza due to unidentified influenza virus with other respiratory manifestations (principal); F41.9 Anxiety disorder, unspecified; F17.210 Nicotine dependence, cigarettes, uncomplicated; Z79.899 Other long term (current) drug therapy
CPT/HCPCS: 36415; 71046; 80053; 85025; 86140; 87651; 96361; 96374; 96375; 99284; A9270-GY; J1885; J2405

== ENCOUNTER → 2019-10-31 07:18 | Emergency (ER) | payer OTHER ==
[~2019-10-31 07:18] MED LIST: Albuterol/Ipratropium NEB.SOL* Albuterol 2.5 MG/Ipratropium 0.5 MG 3 ML INH ONE; Ibuprofen TAB* 400 MG PO ONE; Ondansetron ODT TAB* 4 MG SL ONE
--- NOTE | 2019-10-31 07:35 | ED ---
Complex/Multi-Sys Presentation - HPI Summary HPI Summary: Patient is a 34 y/o F presenting to [facility] with complaints of non-productive cough and chest tightness. Patient states that she had influenza two weeks ago, but the Sx she was experiencing at the time have since resolved. Yesterday, 10/30, patient had onset of cough while at work. She had initially thought the cough was a result of the dust at her workplace, but she notes that the cough persisted throughout the rest of the day. This past evening, the patient had onset of chest tightness that had awoken her from sleep. Tightness progressively worsened. She notes pain at her upper left arm as well. Abdominal pain, calf pain/swelling, and recent falls are denied. Deep breaths and talking worsen her chest tightness. Patient took Tylenol at around 0400 for her Sx. She denies Hx of PNA and asthma but notes Hx of bronchitis. Patient smokes marijuana but not cigarettes. Hx of blood clots, recent travel, and control usage are denied as well. NKDA reported. Home medications and allergies are reviewed. - History Of Current Complaint Time Seen by Provider: 10/31/19 07:21 Hx Obtained From: Patient Onset/Duration: Lasting Hours, Still Present Timing: Hours Location: Pain At: - CHEST Character: Pressure - "tightness" Aggravating Factor(s): deep breaths and talking Associated Signs And Symptoms: Positive: Cough, Chest Pain, Other - negative - BLE edema and pain, recent falls; positive - left upper arm pain. Negative: Abdominal Pain - Allergies/Home Medications Allergies/Adverse Reactions: Allergies Allergy/AdvReac Type Severity Reaction Status Date / Time No Known Allergies Allergy Verified 09/24/19 07:28 Home Medications: Home Medications Ascorbic Acid TAB* [Vitamin C TAB*] 500 mg PO DAILY 10/31/19 [History Confirmed 10/31/19] Cholecalciferol TAB* [Vitamin D TAB*] 1,000 unit PO DAILY 10/31/19 [History Confirmed 10/31/19] Vitamin B Complex TAB* [B Complex-50*] 1 tab PO DAILY 10/31/19 [History Confirmed 10/31/19] PMH/Surg Hx/FS Hx/Imm Hx Endocrine/Hematology History: Reports: Hx Anemia - HISTORY Denies: Hx Diabetes, Hx Thyroid Disease Cardiovascular History: Denies: Hx Congestive Heart Failure, Hx Hypercholesterolemia, Hx Hypertension , Hx Pacemaker/ICD Respiratory History: Reports: Hx Chronic Bronchitis, Hx Sleep Apnea - undiagnosed, Other Respiratory Problems/Disorders - OCCASIONAL SOB WITH EXERTION Denies: Hx Asthma, Hx Chronic Obstructive Pulmonary Disease (COPD) GI History: Denies: Hx Cirrhosis, Hx Crohn's Disease, Hx Diverticulosis, Hx Gall Bladder Disease, Hx Gastroesophageal Reflux Disease, Hx Gastrointestinal Bleed, Hx Hiatal Hernia, Hx Irritable Bowel, Hx Ulcer History: Reports: Other Problems/Disorders - G3 Denies: Hx Kidney Infection, Hx Kidney Stones, Hx Renal Disease Musculoskeletal History: Reports: Hx Back Problems, Hx Bursitis - LEFT SHOULDER Sensory History: Reports: Hx Contacts or Glasses - bifocal (doesnt wear) Denies: Hx Legally Blind, Hx Deafness, Hx Hearing Aid Opthamlomology History: Reports: Hx Contacts or Glasses - bifocal (doesnt wear) Denies: Hx Legally Blind Neurological History: Reports: Hx Headaches, Hx Migraine, Other Neuro Impairments/Disorders - TORTICOLLIS Psychiatric History: Reports: Hx Anxiety, Hx Panic Disorder - Surgical History Surgery Procedure, Year, and Place: 3 C-SECTIONS ,BREAST REDUCTION, NECK SURGERY Hx Anesthesia Reactions: No Infectious Disease History: Denies: Hx Hepatitis, Hx Human Immunodeficiency Virus (HIV), History Other Infectious Disease - Family History Known Family History: Positive: Diabetes - Social History Alcohol Use: Rare Hx Substance Use: No Substance Use Type: Reports: None Hx Tobacco Use: Yes Smoking Status (MU): Light Every Day Tobacco Smoker Type: Cigarettes Amount Used/How Often: 1/2 pack per week Have You Smoked in the Last Year: Yes Review of Systems Positive: Chest Pain Positive: Cough Negative: Abdominal Pain Musculoskeletal: Other - negative - falls, pain/swelling at BLE; positive - left upper arm pain All Other Systems Reviewed And Are Negative: Yes Physical Exam - Summary Physical Exam Summary: Constitutional: Well-developed, Well-nourished, Alert. (-) Distressed Skin: Warm, Dry HENT: Normocephalic; Atraumatic Eyes: Conjunctiva normal Neck: Musculoskeletal ROM normal neck. (-) JVD, (-) Stridor, (-) Tracheal deviation Cardio: Rhythm regular, rate normal, Heart sounds normal; Intact distal pulses; The pedal pulses are 2+ and symmetric. Radial pulses are 2+ and symmetric. (-) Murmur Pulmonary/Chest wall: Patient is noted to have a persistent dry cough with decreased breath sounds. No audible wheezing appreciated. (-) Rales Abd: Soft, (-) tenderness, (-) Distension, (-) Guarding, (-) Rebound Musculoskeletal: (-) Edema Lymph: (-) Cervical adenopathy Neuro: Alert, Oriented x3 Psych: Mood and affect Normal Triage Information Reviewed: Yes Vital Signs Reviewed: Yes Procedures - Sedation Patient Received Moderate/Deep Sedation with Procedure: No Diagnostics - Laboratory Lab Statement: Any lab studies that have been ordered have been reviewed, and results considered in the medical decision making process. - Radiology CXR Radiology Interpretation Completed By: Radiologist Summary of Radiographic Findings: CXR IMPRESSION: No radiographic evidence of acute cardiopulmonary disease. THIS REPORT WAS REVIEWED BY ED PHYSICIAN. - EKG 0824 Cardiac Rate: NL - rate of 90 BPM EKG Rhythm: Sinus Rhythm Summary of EKG Findings: EKG showed NSR with rate of 90 BPM, no ischemic changes. ED physician has reviewed and interpreted this EKG. Complex Multi-Symp Course/Dx Course Of Treatment: Patient is a 34 y/o F presenting to [facility] with complaints of non-productive cough and chest tightness. Patient states that she had influenza two weeks ago, but the Sx she was experiencing at the time have since resolved. Yesterday, 10/30/19, patient had onset of cough while at work. She had initially thought the cough was a result of the dust at her workplace, but she notes that the cough persisted throughout the rest of the day. This past evening , the patient had onset of chest tightness that had awoken her from sleep. Tightness progressively worsened. She notes pain at her upper left arm as well. Abdominal pain, calf pain/swelling, and recent falls are denied. Deep breaths and talking worsen her chest tightness. Patient took Tylenol at around 0400 for her Sx. She denies Hx of PNA and asthma but notes Hx of bronchitis. Patient smokes marijuana but not cigarettes. Hx of blood clots, recent travel, and control usage are denied as well. On physical exam, patient is noted to have a persistent dry cough with decreased breath sounds. No audible wheezing appreciated. Influenza A and B were negative. CXR IMPRESSION: No radiographic evidence of acute cardiopulmonary disease. EKG showed NSR with rate of 90 BPM, no ischemic changes. Patient reports improvement with DuoNeb even though no audible wheezing appreciated. Patient ambulated around the ED, O2 sat 98% on room air. PERC negative. Symptoms consistent with acute bronchitis. Patient given prescription for albuterol MDI. Has PCP for follow-up. During ED course , patient received duoneb x2, motrin 400 mg PO, and Zofran 4 mg SL. Patient was prescribed albuterol inhaler and was discharged to home with PCP followup. - Diagnoses Provider Diagnoses: Acute bronchitis Discharge ED - Sign-Out/Discharge Documenting (check all that apply): Patient Departure - discharge - Discharge Plan Condition: Stable Disposition: HOME Prescriptions: Albuterol HFA INHALER* [Ventolin HFA Inhaler*] 1 puff INH Q4H PRN #1 mdi PRN Reason: Wheezing Patient Education Materials: Acute Bronchitis (ED) Forms: *Work Release Referrals: [facility] [Outside] - 3 Days Additional Instructions: PLEASE RETURN TO ED FOR ANY NEW OR CONCERNING SYMPTOMS. PLEASE FOLLOW UP WITH YOUR PRIMARY CARE PHYSICIAN WITHIN THREE DAYS. - Billing Disposition and Condition Condition: STABLE Disposition: Home - Attestation Statements Document Initiated by Scribe: Yes Documenting Scribe: SHANTELLE BREWSTER Provider For Whom Scribe is Documenting (Include Credential): JORGE RUIZ DO Scribe Attestation: SHANTELLE Golden scribed for JORGE RUIZ DO on 10/31/19 at 1104. Scribe Documentation Reviewed: Yes Provider Attestation: The documentation as recorded by the SHANTELLE lopez accurately reflects the service I personally performed and the decisions made by JORGE berry DO Status of Scribbrenda Document: Viewed
[2019-10-31 08:15] LABS: Influenza A Molecular Negative (Negative); Influenza B Molecular Negative (Negative)
[2019-10-31 09:18] VITALS: BP 129/87
== END | disposition home or self-care (01) ==
LOC: ED 07:18
DX: J20.9 Acute bronchitis, unspecified (principal); M79.622 Pain in left upper arm; F17.210 Nicotine dependence, cigarettes, uncomplicated
CPT/HCPCS: 71046; 93005; 99283; A9270-GY